=== PATIENT | female | born 1985 | race American Indian/Alaskan Native ===

== ENCOUNTER 2018-05-14 10:18 | Emergency (ER) | payer MEDICARE, MEDICAID ==
--- NOTE | 2018-05-14 12:33 | EDM.PDOC ---
<Scott Calixto - Last Filed: 05/15/18 09:53> ED HPI GENERAL MEDICAL PROBLEM - General Chief Complaint: Genitourinary Problem Stated Complaint: KIDNEY ISSUES, HAVING PAIN Time Seen by Provider: 05/14/18 11:25 - Related Data Allergies Allergy/AdvReac Type Severity Reaction Status Date / Time Latex, Natural Rubber Allergy Other Verified 05/14/18 11:19 vancomycin Allergy Hives Verified 05/14/18 11:19 Home Meds: Home Meds Aspirin [Ecotrin] 1 tab PO DAILY 05/14/18 [History] Calc/D3/Mag/Zn/Teacher Asst/[place] [Calcium 600 MG Plus Vit D] 1 tab PO BID 05/14/18 [History] Darbepoetin Grady [Aranesp] 1 injection SUBCUT ASDIRECTED 05/14/18 [History] Darifenacin [Enablex] 1 tab PO DAILY 05/14/18 [History] Doxercalciferol [Hectorol] 1 dose IV ASDIRECTED 05/14/18 [History] Ergocalciferol (Vitamin D2) [Drisdol] 1 tab PO WEEKLY 05/14/18 [History] Latanoprost 1 drop EYEBOTH DAILY 05/14/18 [History] Penicillin V Potassium 1 tab PO QID 05/14/18 [History] Phenazopyridine HCl [Azo Urinary Pain Relief] 1 tab PO ASDIRECTED 05/14/18 [ History] Sertraline [Zoloft] 1 tab PO DAILY 05/14/18 [History] Sodium Carbonate 650 mg PO TID 05/14/18 [History] Sodium Ferric Gluconate Cmplex [Ferrlecit IV] 12.5 mg IV ASDIRECTED 05/14/18 [ History] Sulfamethoxazole/Trimethoprim [Bactrim 400-80 MG] 1 each PO BID 3 Days #6 tablet 05/14/18 [Rx] prednisoLONE acetate [Pred Forte 1% Ophth Susp] 1 drop EYEBOTH ASDIRECTED [History] Course - Vital Signs Last Recorded V/S: Last Vital Signs Temp 36.6 C 05/14/18 11:17 Pulse 121 H 05/14/18 12:46 Resp 16 05/14/18 12:46 BP 143/80 H 05/14/18 12:46 Pulse Ox 96 05/14/18 12:46 - Orders/Labs/Meds Labs: Laboratory Tests 05/14/18 Range/Units 11:33 Urine Color Brown Urine Appearance Turbid Urine pH 7.0 (4.5-8.0) Ur Specific [place] 1.010 (1.008-1.030) Urine Protein 30 H (NEGATIVE) mg/dL Urine Glucose (UA) Normal (NEGATIVE) mg/dL Urine Ketones Negative (NEGATIVE) mg/dL Urine Occult Blood Large (NEGATIVE) Urine Nitrite Positive H (NEGATIVE) Urine Bilirubin Negative (NEGATIVE) Urine Urobilinogen Normal (NORMAL) mg/dL Ur Leukocyte Esterase Large (NEGATIVE) Urine RBC Packed H (0-5) Urine WBC Semi-packed H (0-5) Ur Epithelial Cells Few Amorphous Sediment Not seen Urine Bacteria Many Urine Mucus Not seen Urine Other Meds: Medications Discontinued Medications Generic Name Dose Route Start Last Admin Trade Name Freq PRN Reason Stop Dose Admin Oxycodone/Acetaminophen 1 tab 05/14/18 12:40 05/14/18 12:46 Percocet 325-5 Mg PO 05/14/18 12:41 1 tab ONETIME ONE Administration - Re-Assessments/Exams Free Text/Narrative Re-Assessment/Exam: As noted above, 33 yo with hx of failed renal transplant and recurrent UTI presents with dysuria and suprapubic pain. She was recently started on penicillin and reports symptoms have not improved. Reviewed culture data from [facility] and previously she has grown out penicillin resistent E coli Therefore switched to bactrim Requesting very strongly narcotics for suprapubic pain but have declined to prescribe this. 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 Baljeet 05/15/18 07:57 Departure - Departure Time of Disposition: 14:06 Disposition: Home, Self-Care 01 Clinical Impression: UTI (urinary tract infection) Qualifiers: Urinary tract infection type: acute cystitis Hematuria presence: with hematuria Qualified Code(s): N30.01 - Acute cystitis with hematuria - Discharge Information *PRESCRIPTION DRUG MONITORING PROGRAM REVIEWED*: No *COPY OF PRESCRIPTION DRUG MONITORING REPORT IN PATIENT AISLINN: No Prescriptions: Sulfamethoxazole/Trimethoprim [Bactrim 400-80 MG] 1 each PO BID 3 Days #6 tablet Instructions: Urinary Tract Infection, Adult Referrals: Jabier Turk MD [Primary Care Provider] - Forms: ED Department Discharge Additional Instructions: Please take the prescribed medication It is important that you follow up with your primary doctor to ensure resolution of your infection <Mecca Delong - Last Filed: 05/16/18 10:31> ED HPI GENERAL MEDICAL PROBLEM - General Source of Information: Reports: Patient History Limitations: Reports: No Limitations - History of Present Illness Onset: Gradual Location: Reports: Abdomen (generalized, hasn't had regular bowel movement in past few days, one last week. Prior to this had a daily bowel movement. ) Quality: Reports: Ache, Dull, Sharp (occassional sharp pain amongst the dull ache) Improves with: Reports: None Associated Symptoms: Reports: No Other Symptoms Lower Pelvic Pain Score (Numeric/FACES): 9 Past Medical History Gastrointestinal History: Reports: Chronic Constipation Genitourinary History: Reports: Dialysis, UTI, Recurrent, Other (See Below) Other Genitourinary History: does not normally urinate, does straight cath, has dialysis mon, wed., wed, kidney transplant at 19 yrs old, dialysis started 8 yrs later Musculoskeletal History: Reports: None Other Musculoskeletal History: spinabif Hematologic History: Reports: Anemia, Blood Transfusion(s) - Infectious Disease History Infectious Disease History: Reports: Chicken Pox - Past Surgical History Head Surgeries/Procedures: Reports: None GI Surgical History: Reports: None Female Surgical History: Reports: None Endocrine Surgical History: Reports: None Musculoskeletal Surgical History: Reports: Other (See Below) Other Musculoskeletal Surgeries/Procedures:: right wrist Dermatological Surgical History: Reports: None Social & Family History - Tobacco Use Smoking Status *Q: Never Smoker Second Hand Smoke Exposure: No - Caffeine Use Caffeine Use: Reports: Soda ED ROS GENERAL - Review of Systems Review Of Systems: ROS reveals no pertinent complaints other than HPI. Constitutional: Reports: No Symptoms Respiratory: Reports: No Symptoms Cardiovascular: Reports: No Symptoms GI/Abdominal: Reports: Abdominal Pain (diffuse, intermittent), Constipation, Other (describes renal colic pain. ) Skin: Reports: No Symptoms Neurological: Reports: No Symptoms ED EXAM, RENAL/ - Physical Exam Exam: See Below Exam Limited By: No Limitations General Appearance: Alert, WD/WN, No Apparent Distress, Mild Distress Respiratory/Chest: No Respiratory Distress, Lungs Clear, Normal Breath Sounds, No Accessory Muscle Use, Chest Non-Tender Cardiovascular: Regular Rate, Rhythm, No Edema GI/Abdominal: Other (hypoactive bowel sounds in all four quadrants) Neurological: Alert, Oriented, Normal Cognition Psychiatric: Normal Affect, Normal Mood Skin Exam: Warm, Dry, Intact, Normal Color Course - Orders/Labs/Meds Meds: Medications Discontinued Medications Generic Name Dose Route Start Last Admin Trade Name Freq PRN Reason Stop Dose Admin Oxycodone/Acetaminophen 1 tab 05/14/18 12:40 05/14/18 12:46 Percocet 325-5 Mg PO 05/14/18 12:41 1 tab ONETIME ONE Administration
[2018-05-14] MEDS ORDERED: Acetaminophen/oxyCODONE 325-5 MG Tab PO ONE (12:40)
== END 2018-05-14 14:15 | disposition home or self-care (01) ==
LOC: JP.ED 10:18
DX: N30.01 Acute cystitis with hematuria (principal); Z91.040 Latex allergy status; Z79.82 Long term (current) use of aspirin; Z88.0 Allergy status to penicillin; Z88.1 Allergy status to other antibiotic agents
CPT/HCPCS: 81001; 87086; 99284; A9270